=== PATIENT | female | born 1995 | race Caucasian/White ===

== ENCOUNTER 2017-10-27 10:31 | Emergency (ER) | payer OTHER ==
--- NOTE | 2017-10-27 10:55 | ER Document Report ---
ED Medical Screen (RME) - General Chief Complaint: Numbness of Face Stated Complaint: LEFT SIDED NUMBNESS Time Seen by Provider: 10/27/17 10:50 Notes: 21 years old female no past medical history, presents today with left-sided numbness and unable to feel the left side and weakness over the left side of the face and left side of the arm since last Friday. 3 days. Denies any headache. Denies any nausea vomiting. Denies any neck pain or neck stiffness. Able to walk without any discomfort. Denies any dizziness palpitation or diaphoresis. On examination-extraocular muscles were within normal range no nystagmus noted. Left pupil is larger than the right. Reactive Definite left facial weakness noted almost like a lower motor tone type weakness had difficulty in closing the left eye completely. No tongue deviation. Left upper limb 2/5 in above and right upper limb 5/ 5. Lower limbs power is 5/5. No abnormal gait. Able to walk steadily. TRAVEL OUTSIDE OF THE [place] IN LAST 30 DAYS: No - Related Data Allergies/Adverse Reactions: Cephalosporins Allergy (Verified 10/27/17 10:33) Penicillins Allergy (Verified 10/27/17 10:33) Past Medical History - Social History Chew tobacco use (# tins/day): No Frequency of alcohol use: Occasional Drug Abuse: None Renal/ Medical History: Denies: Hx Peritoneal Dialysis Physical Exam - Vital signs Vitals: Temp Pulse Resp BP Pulse Ox 98.0 F 97 12 124/81 100 10/27/17 10:38 10/27/17 10:38 10/27/17 10:38 10/27/17 10:38 10/27/17 10:38 Course - Vital Signs Vital signs: Temp Pulse Resp BP Pulse Ox 98.0 F 97 12 124/81 100 10/27/17 10:38 10/27/17 10:38 10/27/17 10:38 10/27/17 10:38 10/27/17 10:38
--- NOTE | 2017-10-27 10:56 | ER Document Report ---
ED General - General Chief Complaint: Numbness of Face Stated Complaint: LEFT SIDED NUMBNESS Time Seen by Provider: 10/27/17 10:50 TRAVEL OUTSIDE OF THE [place] IN LAST 30 DAYS: No - HPI Notes: 21 years old female no past medical history, presents today with left-sided numbness and unable to feel the left side and weakness over the left side of the face and left side of the arm since last Friday. 3 days. Denies any headache. Denies any nausea vomiting. Denies any neck pain or neck stiffness. Able to walk without any discomfort. Denies any dizziness palpitation or diaphoresis. On examination-extraocular muscles were within normal range no nystagmus noted. Left pupil is larger than the right. Reactive Definite left facial weakness noted almost like a lower motor tone type weakness had difficulty in closing the left eye completely. No tongue deviation. Left upper limb 2/5 in above and right upper limb 5/ 5. Lower limbs power is 5/5. No abnormal gait. Able to walk steadily. - Related Data Allergies/Adverse Reactions: Cephalosporins Allergy (Verified 10/27/17 10:33) Penicillins Allergy (Verified 10/27/17 10:33) Past Medical History - Social History Smoking Status: Never Smoker Chew tobacco use (# tins/day): No Frequency of alcohol use: Occasional Drug Abuse: None Family History: CVA Patient has suicidal ideation: No Patient has homicidal ideation: No Renal/ Medical History: Denies: Hx Peritoneal Dialysis Physical Exam - Vital signs Vitals: Temp Pulse Resp BP Pulse Ox 98.0 F 97 12 124/81 100 10/27/17 10:38 10/27/17 10:38 10/27/17 10:38 10/27/17 10:38 10/27/17 10:38 Course - Re-evaluation Re-evalutation: 10/27/17 11:44 21-year-old female presents with some left face paresthesias left upper extremity paresthesias, patient has inability to close her left eye also has profound weakness in her left upper extremity. Patient's extensive lab workup here unremarkable at this time. Patient has CAT scan head performed which shows no gross abnormality. Concern for stroke exist given family history of young stroke in uncle in his late 20s. Patient will be transferred to [facility] for further evaluation. - Vital Signs Vital signs: Temp Pulse Resp BP Pulse Ox 98.0 F 97 8 L 120/83 100 10/27/17 10:38 10/27/17 10:38 10/27/17 11:18 10/27/17 11:18 10/27/17 11:18 - Laboratory Result Diagrams: 10/27/17 11:04 10/27/17 11:04 Laboratory results interpreted by me: 10/27/17 11:04 WBC 10.9 H - Diagnostic Test Radiology reviewed: Reports reviewed Discharge - Discharge Clinical Impression: Weakness Condition: Stable Disposition: [facility] Admitting Provider: Dr. Philip Low
--- NOTE | 2017-10-27 11:19 | RADIOLOGY REPORT (SQ) ---
EXAM DESCRIPTION: CT HEAD WITHOUT COMPLETED DATE/TIME: 10/27/2017 11:02 am REASON FOR STUDY: Left-sided weakness COMPARISON: None. TECHNIQUE: Axial images acquired through the brain without intravenous contrast. Images reviewed wi th bone, brain and subdural windows. Additional sagittal and coronal reconstructions were generated. Images stored on PACS. All CT scanners at this facility use dose modulation, iterative reconstruction, and/or weight based d osing when appropriate to reduce radiation dose to as low as reasonably achievable (ALARA). [facility]: Dose Right [facility]: CareDose [facility]: Dose Right [facility]: Teradose 4D [facility]: Smart Pansieve RADIATION DOSE: CT Rad equipment meets quality standard of care and radiation dose reduction techniq ues were employed. CTDIvol: 53.2 mGy. DLP: 1044 mGy-cm. mGy. LIMITATIONS: None. FINDINGS: VENTRICLES: Normal size and contour. CEREBRUM: No masses. No hemorrhage. No midline shift. No evidence for acute infarction. Normal gra y/white matter differentiation. No areas of low density in the white matter. CEREBELLUM: No masses. No hemorrhage. No alteration of density. No evidence for acute infarction. EXTRAAXIAL SPACES: No fluid collections. No masses. ORBITS AND GLOBE: No intra- or extraconal masses. Normal contour of globe without masses. CALVARIUM: No fracture. PARANASAL SINUSES: No fluid or mucosal thickening. SOFT TISSUES: No mass or hematoma. OTHER: No other significant finding. IMPRESSION: NORMAL BRAIN CT WITHOUT CONTRAST. EVIDENCE OF ACUTE STROKE: NO. COMMENT: Quality ID # [id number]: Final reports with documentation of one or more dose reduction techniques (e.g., Automated exposure control, adjustment of the mA and/or kV according to patient size, use of iterative reconstruction technique) TECHNICAL DOCUMENTATION: JOB ID: [id number] [employer]- All Rights Reserved Reading location - IP/workstation name: [email or web address]
[2017-10-27 11:31] LABS: ABSOLUTE EOSINOPHILS # (AUTO) 0.3 10^3/uL (0.0-0.6); ABSOLUTE LYMPHOCYTES (AUTO) 4.1 10^3/uL (0.5-4.7); ABSOLUTE MONOCYTES (AUTO) 0.7 10^3/uL (0.1-1.4); ABSOLUTE NEUT (AUTO) 5.8 10^3/uL (1.7-8.2); BASOPHILS % (AUTO) 0.2 % (0-2); HEMATOCRIT 38.3 % (36.0-47.0); LYMPHOCYTES % (AUTO) 37.5 % (13-45); MEAN CORPUSCULAR HEMOGLOBIN 30.1 pg (27.0-33.4); MEAN CORPUSCULAR HGB CONC 33.8 g/dL (32.0-36.0); MEAN CORPUSCULAR VOLUME 89 fl (80-97); MONOCYTES % (AUTO) 6.6 % (3-13); PLATELET COUNT 450 10^3/uL (150-450); SEGMENTED NEUTROPHILS % (AUTO) 52.7 % (42-78); TOTAL CELLS COUNTED % (AUTO) 100 %; WHITE BLOOD COUNT 10.9 10^3/uL (4.0-10.5)
[2017-10-27 11:37] LABS: INTERNATIONAL RATION (INR) 0.97; PROTHROMBIN TIME 13.4 SEC (11.4-15.4)
[2017-10-27 11:45] LABS: APPEARANCE,URINE SLIGHTLY-CLOUDY; BILIRUBIN,URINE NEGATIVE (NEGATIVE); COLOR,URINE YELLOW; GLUCOSE, URINE NEGATIVE (NEGATIVE); KETONES,URINE NEGATIVE (NEGATIVE); LEUKOCYTE ESTERASE,URINE LARGE (NEGATIVE); NITRITE,URINE NEGATIVE (NEGATIVE); PROTEIN,URINE NEGATIVE (NEGATIVE); URINE SPECIFIC GRAVITY 1.027; UROBILINOGEN,URINE NEGATIVE mg/dL (<2.0)
[2017-10-27 11:52] LABS: ALANINE AMINOTRANSFERASE 33 U/L (9-52); ALBUMIN 4.8 g/dL (3.5-5.0); ALKALINE PHOSPHATASE 89 U/L (38-126); ANION GAP 15 (5-19); ASPARTATE AMINO TRANSFERASE 28 U/L (14-36); BILIRUBIN,DIRECT 0.3 mg/dL (0.0-0.4); BILIRUBIN,TOTAL 0.5 mg/dL (0.2-1.3); BLOOD UREA NITROGEN 16 mg/dL (7-20); CALCIUM 10.1 mg/dL (8.4-10.2); CARBON DIOXIDE 25 mmol/L (22-30); CHLORIDE 103 mmol/L (98-107); GLUCOSE 99 mg/dL (75-110); POTASSIUM 4.4 mmol/L (3.6-5.0); SODIUM 143.4 mmol/L (137-145)
[2017-10-27 15:23] VITALS: BP 120/88
--- NOTE | 2017-10-27 16:30 | ER Document Report ---
Doctor's Note Notes: 10/27/17 16:29 Patient reevaluated prior to transfer well-appearing female no change in symptoms.
== END 2017-10-27 16:36 | disposition short-term general hospital (02) ==
LOC: ER 10:31
DX: R53.1 Weakness (principal); R29.810 Facial weakness; R20.0 Anesthesia of skin; H57.02 Anisocoria; Z88.1 Allergy status to other antibiotic agents; Z88.0 Allergy status to penicillin; Z82.3 Family history of stroke
CPT/HCPCS: 36415; 70450; 80053; 81001; 84703; 85025; 85610; 99285